=== PATIENT | female | born 1975 | race African-American/Black ===

== ENCOUNTER 2017-10-26 17:58 | Emergency (ER) | payer MEDICAID, OTHER ==
[~2017-10-26] VITALS: Ht 160 cm; Wt 71.0 kg
[2017-10-26 18:02] VITALS: BP 154/80
== END 2017-10-27 00:22 | disposition left against medical advice (07) ==
LOC: ER 21:48
DX: R07.89 Other chest pain (principal); R06.02 Shortness of breath; R05 Cough; G35 Multiple sclerosis; F12.10 Cannabis abuse, uncomplicated
CPT/HCPCS: 81025; 99282

== ENCOUNTER 2017-10-27 07:31 | Emergency (ER) | payer MEDICAID ==
[~2017-10-27] VITALS: Ht 162.6 cm; Wt 79.0 kg
[2017-10-27] MEDS ORDERED: ALBUTEROL (0.083%) 2.5MG/3ML NEB HHN STA ×2 (08:37→09:54)
[2017-10-27] MEDS ORDERED: IPRATROPIUM BROMIDE (0.02%) 0.5MG/2.5ML NEB HHN STA ×2 (08:37→09:54)
[2017-10-27] MEDS ORDERED: IBUPROFEN 600MG TABLET PO ONE (10:00)
[2017-10-27] MEDS ORDERED: ACETAMINOPHEN 325MG TABLET PO ONE (10:00)
[2017-10-27] MEDS ORDERED: PREDNISONE 20MG TABLET PO ONE (11:00)
[2017-10-27 11:10] VITALS: BP 104/65
== END 2017-10-27 11:35 | disposition home or self-care (01) ==
LOC: ER 08:17
DX: J20.9 Acute bronchitis, unspecified (principal); F12.10 Cannabis abuse, uncomplicated
CPT/HCPCS: 71045; 81025; 94640; 99284; J7611

== ENCOUNTER 2017-11-06 09:09 | Emergency (ER) | payer MEDICAID ==
[~2017-11-06] VITALS: Ht 165.1 cm; Wt 65.0 kg
[2017-11-06 09:20] VITALS: BP 125/83
[2017-11-06] MEDS ORDERED: GABAPENTIN 300MG CAPSULE PO ONE (12:45)
== END 2017-11-06 12:47 | disposition home or self-care (01) ==
LOC: ER 09:09
DX: B02.9 Zoster without complications (principal); J20.9 Acute bronchitis, unspecified; F12.10 Cannabis abuse, uncomplicated
CPT/HCPCS: 99283

== ENCOUNTER 2020-03-08 08:49 | Emergency (ER) | payer MEDICAID ==
[~2020-03-08] VITALS: Ht 165.1 cm; Wt 90.0 kg
[2020-03-08] MEDS ORDERED: DEXAMETHASONE 10 MG/ML VIAL IM ONE (10:00)
[2020-03-08] MEDS ORDERED: PENICILLIN G BENZATHINE 1,200,000 UNITS/2ML SYR IM ONE (10:00)
[2020-03-08 11:07] VITALS: BP 116/91
== END 2020-03-08 11:12 | disposition home or self-care (01) ==
LOC: ER 08:49
DX: J36 Peritonsillar abscess (principal); F12.10 Cannabis abuse, uncomplicated
CPT/HCPCS: 87070; 87430; 96372; 99284; J0561; J1100